=== PATIENT | female | born 2000 | race Caucasian/White ===

== ENCOUNTER 2022-12-26 19:00 | Emergency (ER) | payer BC, OTHER, SELFPAY ==
[2022-12-26 19:00] VITALS: BP 153/85; PULSE 85; RESP 17; TEMP 36.7; O2SAT 99; BMI 30.2
--- NOTE | 2022-12-26 19:09 | US_ITS ---
PROCEDURE INFORMATION: Exam: US , Transvaginal and US Duplex Artery and Vein, Ovaries, Complete Exam date and time: 12/26/2022 7:48 PM Age: 22 years old Clinical indication: Lmp or gestational age (in weeks): 6w4d; Antepartum complications; pain, bleeding; ; Patient HX: [facility] pending; Additional info: Vaginal spotting first trimester TECHNIQUE: Imaging protocol: Real-time transvaginal obstetrical ultrasound of the maternal pelvis and a first trimester with image documentation. Transvaginal imaging was used for better evaluation of the fetus, adnexa, and/or cervix. Real-time duplex ultrasound scan of the arterial and venous flow of the ovaries with B-mode, color Doppler flow and spectral waveform analysis, Complete Duplex. Duplex exam was performed to evaluate for torsion and other vascular conditions. COMPARISON: No relevant prior studies available. FINDINGS: Uterus: The uterus is gravid with a single intrauterine gestational sac containing pole/yolk sac. Cardiac activity at 133 beats per minute. . Composite Gestational Age/ Pole corresponds to 6 weeks and 4 days with estimated date of confinement of 08/17/2023. . Adnexa/Ovaries: RIGHT ovary measures approximately 5.6 mL and LEFT ovary 3.1 mL. RIGHT ovarian corpus luteal cyst/follicle measuring approximately 2.0 x 1.6 cm. No adnexal mass or abnormality. No free fluid in the pelvis. . Doppler: Doppler examination of the ovaries with pulsed wave and color images was performed which demonstrate arterial/venous waveforms within normal limits. IMPRESSION: 1. Single LIVE intrauterine gestation. 2. Normal ovaries demonstrating blood flow on Doppler. COMMENT: Due to the early gestational age, neither amniotic fluid volume nor placental formation was evaluated.
--- NOTE | 2022-12-26 19:18 | HMH.EDGENADL ---
Discharge Plan Disposition Patient Disposition: Home, Self-Care Prescriptions Prescriptions: No Action No Known Home Medications Referrals Follow up/Referrals: Provider,MD Jessie [Primary Care Provider] - See instructions Brigida Flaherty DO [Staff Physician] - See instructions Shaniqua Lipscomb MD [Staff Physician] - See instructions Clinical Impressions Clinical Impression: Vaginal bleeding, , Vaginal bleeding affecting early Instructions Patient Instructions: DI for Vaginal Bleeding During Discharge ED Provider: Amy (ED)Hussain General Adult HPI <Wilber Gordon MD - Last Filed: 12/26/22 19:51> General Chief complaint: Vaginal Bleeding Stated complaint: and bleeding Time Seen by Provider: 12/26/22 19:00 Mode of Arrival: Ambulatory Source of Information: Patient Limitations: No Limitations Description of Symptoms (Recalled from ER Triage Doc. by RN): 22 F presents with light pink, light flow vaginal bleeding. She is 4 months post-, considering she has a positive home test as of this past Sunday. Patient had a PCP visit on 12/17 with negtive UPT. Patient c/o lower abdominal discomfort all over. History of Present Illness HPI narrative: 22-year-old female presents with pink spotting vaginal bleeding. She is 4 months and she had a positive test at home. She was O- previously. She has not had any tissue or other besides blood. No vomiting diarrhea dysuria hematuria abdominal pain chest pain shortness of air. Related Data Home Medications Medication Instructions Recorded Confirmed No Known Home Medications 12/26/22 12/26/22 Allergies Allergy/AdvReac Type Severity Reaction Status Date / Time No Known Allergies Allergy Verified 12/26/22 19:17 PFS <Wilber Gordon MD - Last Filed: 12/26/22 19:51> [facility] Disclaimer: The information contained in this section may have been updated after the patient was seen, as this information can be updated by other users. Social History (Updated 12/26/22 @ 19:51 by Wilber Gordon MD) Smoking Status: Never smoker alcohol intake: never current occupational status: employed Travel in the last 8 weeks: Inside the [place] <Wilber Gordon MD - Last Filed: 12/26/22 19:51> ROS Obtained: Yes All systems reviewed & no additional complaints except as documented Constitutional Constitutional: Denies fatigue and Denies headache(s) Eyes Eyes: Denies dry eyes ENT Ears, Nose, Mouth, and Throat: Denies dry mouth and Denies headache(s) Cardiovascular Cardiovascular: Denies dyspnea Respiratory Respiratory: Denies dyspnea and Denies wheezing Gastrointestinal Gastrointestingal: Denies constipation Genitourinary Female Genitourinary: Denies hematuria Musculoskeletal Musculoskeletal: Denies joint stiffness Integumentary/Breasts Skin/Breast: Denies rash Neurologic Neurologic: Denies headache(s) Endocrine Endocrine: Denies fatigue Hematologic/Lymphatic Henatologic/Lymphatic: Denies easy bleeding Allergic/Immunologic Allergic/Immunologic: Denies wheezing Physical Exam <Wilber Gordon MD - Last Filed: 12/26/22 19:51> General General appearance: alert and in no apparent distress Eye Eye exam: Present PERRL and EOMI ENT ENT exam: Present normal exam and normal oropharynx Neck Neck exam: Present normal inspection Chest Chest inspection: Present symmetric chest wall rise Respiratory Respiratory exam: Present normal lung sounds bilaterally; Absent respiratory distress Cardiovascular Cardiovascular exam: Present regular rate and normal rhythm Abdominal Exam Abdominal exam: Present soft; Absent distention, tenderness, guarding, rebound, Roberts's sign or tenderness at McBurney's Point Back Exam Back exam: Present normal inspection Neurological Exam Neurological exam: Present alert and oriented X3 Psychiatric Psychiatric exam: Present normal affect and normal mood Skin Skin e
[2022-12-26 19:31] VITALS: BP 127/61; O2SAT 100
[2022-12-26 19:46] LABS: Microscopic, Urine URINE MICROSCOPIC (MICROSCOPIC)
[2022-12-26 19:55] LABS: Appearance,Urine CLEAR (Clear); Bilirubin,Urine Negative (Negative); Blood, Urine Negative (Negative); Chloride 95 mmol/L (98-107); Color,Urine YELLOW (Yellow); Glucose,Urine (UA) Negative (Negative); Ketones,Urine Negative (Negative); Leukocyte Esterase,Urine Negative (Negative); Nitrate,Urine Negative (Negative); PH,Urine 6.5 (5.0-8.5); Potassium 3.2 mmoL/L (3.5-5.1); Protein,Urine Negative (Negative); Sodium 136 mmol/L (136-145); Specific Gravity, Urine <= 1.005 (1.005-1.030); Urobilinogen,Urine 0.2 EU/dl (0.2)
[2022-12-26 19:57] LABS: Blood Urea Nitrogen 6 mg/dl (7-17); Creatinine Clearance Estimated 155 mL/min (50-200); Estimated Glomerular Filt Rate 123 ml/min (>60); GFR (African American) 149 ML/MIN (>60)
[2022-12-26 19:58] LABS: Alanine Aminotransferase 18 U/L (12-78); Albumin Level 4.5 g/dl (3.5-5.0); Albumin/Globulin Ratio 1.5 (1.1-1.8); Alkaline Phosphatase 81 U/L (38-126); Anion Gap 16.2 mEq/L (5-15); Aspartate Amino Transferase 26 U/L (14-36); Bilirubin,Total 0.9 mg/dl (0.2-1.3); Calcium 9.1 mg/dl (8.4-10.2); Carbon Dioxide 28 mmol/L (22.0-30.0); Globulin 3.1 g/dL (1.3-3.2); Glucose 102 mg/dl (74-100); HCG Qualitative, Serum Positive (Negative); Total Protein,Serum 7.6 g/dl (6.3-8.2)
[2022-12-26 20:02] LABS: Basophils % 0.5 % (0.1-2.0); Eosinophils # 0.1 K/mm3 (0.0-0.4); Eosinophils % 0.8 % (0.1-12.0); Hematocrit 41.5 % (37.0-47.0); Hemoglobin 14.1 g/dL (12.2-16.2); Lymphocytes # 2.3 K/mm3 (0.7-4.5); Lymphocytes % 41.3 % (10-50); Mean Corpuscular Hemoglobin 31.8 pg (27.0-31.2); Mean Corpuscular Volume 93.3 fl (81-99); Mean Platelet Volume 9.7 fl (7.4-10.4); Monocytes # 0.4 K/mm3 (0.1-1.0); Monocytes % 6.3 % (1.7-9.3); Neutrophils # 2.9 K/mm3 (1.8-7.8); Platelet Count 273 K/mm3 (142-424); Red Blood Count 4.44 M/mm3 (4.20-5.40); Red Cell Distribution Width 13.3 % (11.5-17.5); White Blood Count 5.6 K/mm3 (4.8-10.8)
--- NOTE | 2022-12-26 20:13 | PC.NURSE ---
Patient back from ultrasound
[2022-12-26 20:23] LABS: Bacteria,Urine Trace /lpf
[2022-12-26 20:30] VITALS: BP 144/118; PULSE 91; O2SAT 99
--- NOTE | 2022-12-26 21:09 | PC.NURSE ---
RhoGAM shot Lot: [id number], EXP: [id number]
[2022-12-26 21:19] VITALS: BP 143/80; PULSE 78; RESP 18; TEMP 36.8; O2SAT 97
== END 2022-12-26 21:19 | disposition home or self-care (01) ==
PROVIDERS: Emergency Medicine; Emergency Provider Emergency Medicine
DX: O26.851 Spotting complicating pregnancy, first trimester (principal); Z3A.01 Less than 8 weeks gestation of pregnancy; Z67.41 Type O blood, Rh negative
CPT/HCPCS: 36415; 76817; 80053; 81001; 84702; 84703; 85025; 96372; 99284; 99285; J2790

== ENCOUNTER → 2023-01-08 15:40 | Outpatient (CLI) | payer BC, OTHER, SELFPAY | PROVIDERS: Visit Provider Nurse Practitioner Obstetrics & Gynecology | DX: Z34.90 Encounter for supervision of normal pregnancy, unspecified, unspecified trimester (principal) | CPT/HCPCS: 87086 ==

== ENCOUNTER → 2023-01-12 13:15 | Outpatient (CLI) | payer BC, OTHER, SELFPAY ==
--- NOTE | 2023-01-12 13:18 | US_ITS ---
PROCEDURE: US OB <= 14 WEEKS FETUS CLINICAL INDICATION: for dates COMPARISON: No exams were available for comparison FINDINGS: From her last menstrual period she is 9weeks 1day. An intrauterine gestational sac is present with a pole with a crown-rump length of 2.31cm correlating to gestational age of 9weeks 1day. heart tones are present with an FHR of 176bpm. Yolk sac is noted. The yolk sac measures 4.6mm. The right ovary is seen and appears normal. The left ovary is not seen due to overlying bowel gas. There is no fluid in the cul-de-sac. IMPRESSION: 1. Estimated due date by Ultrasound is 08/16/2023. This corresponds with her last menstrual period 2. heart rate activity is seen. 3..Right ovary appears normal, left ovary not seen.. Dictated by: Sav Rubio MD 01/14/2023 09:59 Sav Rubio MD in OV 01/14/2023 09:59
== END ==
PROVIDERS: PCP Family Medicine; Visit Provider Nurse Practitioner Obstetrics & Gynecology
DX: Z34.91 Encounter for supervision of normal pregnancy, unspecified, first trimester (principal); Z3A.14 14 weeks gestation of pregnancy
CPT/HCPCS: 76801

== ENCOUNTER → 2023-02-08 15:25 | Outpatient (CLI) | payer BC, OTHER, SELFPAY ==
[2023-02-08 15:56] LABS: Basophils % 0.3 % (0.1-2.0); Eosinophils % 0.9 % (0.1-12.0); Hematocrit 38.4 % (37.0-47.0); Hemoglobin 12.5 g/dL (12.2-16.2); Lymphocytes # 1.8 K/mm3 (0.7-4.5); Lymphocytes % 37.6 % (10-50); Mean Corpuscular HGB Conc 32.6 g/dL (31.8-35.4); Mean Corpuscular Hemoglobin 30.6 pg (27.0-31.2); Mean Platelet Volume 9.7 fl (7.4-10.4); Monocytes # 0.3 K/mm3 (0.1-1.0); Monocytes % 5.9 % (1.7-9.3); Neutrophils # 2.7 K/mm3 (1.8-7.8); Neutrophils % 55.3 % (37.0-80.0); Platelet Count 219 K/mm3 (142-424); Red Blood Count 4.09 M/mm3 (4.20-5.40); Red Cell Distribution Width 13.9 % (11.5-17.5); White Blood Count 4.8 K/mm3 (4.8-10.8)
[2023-02-10 08:17] LABS: HIV Screen 4th Generation wRfx Non Reactive (Non Reactive); HSV 2 IgG, Type Spec <0.91 index (0.00-0.90); Rubella Antibodies, IgG 2.79 index (Immune >0.99)
[2023-02-10 10:12] LABS: Rapid Plasma Reagin Ab Titer Non Reactive (NonRea<1:1)
[2023-03-19 13:12] LABS: Hepatitis B Surface Antigen Negative; Hepatitis C Antibody Non Reactive
== END ==
PROVIDERS: PCP Family Medicine; Visit Provider Nurse Practitioner Obstetrics & Gynecology
DX: Z34.91 Encounter for supervision of normal pregnancy, unspecified, first trimester (principal); Z3A.12 12 weeks gestation of pregnancy
CPT/HCPCS: 36415; 85025; 86593; 86695; 86703; 86762; 86790; 86850; 86870; 87340; 87380; G0432

== ENCOUNTER → 2023-04-10 10:08 | Outpatient (CLI) | payer BC, OTHER, SELFPAY ==
--- NOTE | 2023-04-10 10:10 | US_ITS ---
PROCEDURE: US OB /MATERNAL DETAIL CLINICAL INDICATION: OB Complete COMPARISON: No exams were available for comparison FINDINGS: Transabdominal sonographic images of the uterus were obtained. From her established due date she is 21 weeks 4 days. Single viable intrauterine gestation. Breech position. Placenta: Anteriorplacenta grade 1. There is average amount fluid. The cervix appears satisfactory. Closed and measuring 3.9 cm in length. Complete survey performed and was unremarkable on the submitted images as in PACS. No discrete anomalies identified on survey imaging by technologist. Active fetus. Three-vessel cord with satisfactory umbilical cord insertion. 4- chamber heart noted. Aortic arch LVOT, RVOT and three-vessel view appear normal. Survey of brain & ventricles Unremarkable. Cerebellum, cisterna magna, thalamus, choroid plexus appear normal. Face and neck survey unremarkable. Lips, nose, profile, nasion are seen and appear normal. Diaphragm and chest views unremarkable. Abdomen: Both kidneys noted and unremarkable. Stomach, bladder noted and satisfactory. Spine: Survey of the spine satisfactory with no anomalies identified nor imaged. Upper, thoracic and lower spine appear normal. Both arms and legs noted. Amniotic Fluid: Adequate. Measurements: Average ultrasound age 21weeks 3days. Estimated due date by ultrasound age 0108/18/2023. Estimated weight 417g BPD = 21weeks 4days OFD = 21weeks 2days HC = 20weeks 5days AC = 21weeks 3days FL = 21weeks 4days Growth Percentile= 33 Heart Rate = 147bpm Cerebellum = 20weeks 5days Humerus = 22weeks 1day HC/AC is 1.12 CI is 0.8 FL/BPD is 0.71 FL/AC is 0.22 IMPRESSION: 1. Single viable intrauterine gestation in the breech position. 2. The placenta is anterior grade 1. 3. The fluid is within normal limits. 4. Anatomical scan appears normal. 5. Size and dates are congruent. Dictated by: Sav Rubio MD 04/11/2023 13:13 Sav Rubio MD in OV 04/11/2023 13:13
== END ==
PROVIDERS: PCP Family Medicine; Visit Provider Nurse Practitioner Obstetrics & Gynecology
DX: Z34.92 Encounter for supervision of normal pregnancy, unspecified, second trimester (principal); Z3A.20 20 weeks gestation of pregnancy
CPT/HCPCS: 76811